=== PATIENT | female | born 1955 | race Caucasian/White ===

== ENCOUNTER 2021-01-23 10:19 | Inpatient (IN) | payer OTHER, SELFPAY ==
[2021-01-23] VITALS (12 sets, daily range): BP systolic 91–135; BP diastolic 63–93; PULSE 62–77; RESP 14–18; TEMP 36.4–36.8; O2SAT 98–100; BMI 23.5
--- NOTE | ~2021-01-23 | XR_ITS ---
EXAMINATION: XR chest 1V portable DATE: 01/23/2021 11:04 INDICATION: Fall TECHNIQUE: frontal view of the chest was obtained. COMPARISON: Chest radiograph dated 03/11/2019 FINDINGS: The lungs remain clear with no focal airspace opacities, pulmonary edema, pleural effusion or pneumot horax. The cardiomediastinal silhouette is normal. Mild thoracic levocurvature with mild spondylosis. IMPRESSION: 1. No acute cardiopulmonary disease. Reviewed, dictated and finalized at location A.
--- NOTE | ~2021-01-23 | XR_ITS ---
EXAMINATION: XR surgery orthopedic DATE: 01/25/2021 13:19 INDICATION: ORIF right wrist fracture TECHNIQUE: Dorsal palmar and lateral fluoroscopic images of the right wrist were obtained during proc edure performed by Dr. Mcqueen. Radiologist was not present for the imaging or procedure. The amount of fluoroscopy time used during this procedure was 0.3 minutes. COMPARISON: 01/23/2021 FINDINGS: Interval open reduction and internal fixation of the previous noted comminuted intra-articular fractu re distal right radius with a volar T plate and screws. Alignment post fixation appears near-anatomic . No evident ulnar styloid process which could be either developmental or sequela of old trauma. IMPRESSION: 1. Near-anatomic alignment post open reduction internal fixation of a comminuted intra-articular frac ture of the distal right radius. See procedure note for further detail. Reviewed, dictated and finalized at location A. IMPRESSION: 1. Near-anatomic alignment post open reduction internal fixation of a comminute d intra-articular fracture of the distal right radius. See procedure note for f urther detail.
--- NOTE | ~2021-01-23 | XR_ITS ---
EXAMINATION: XR ankle LT min 3V DATE: 01/23/2021 11:03 INDICATION: Fifth metatarsal fracture post fall one day prior TECHNIQUE: Anteroposterior, oblique, mortise, and lateral views of the left ankle were obtained. COMPARISON: None. FINDINGS: Fiberglas splinting material along the posterior aspect of the left calf and plantar to the left foot . Nondisplaced likely avulsion fracture at the base of the left fifth metatarsal, likely intra-articu lar given its orientation in proximity to the articular surface which is not well profiled on the fro ntal projection. Alignment remains essentially anatomic. No other fractures identified. Joint spaces appear relatively preserved. Moderate-sized plantar calcaneal spur. IMPRESSION: 1. Nondisplaced fracture at the base of the left fifth metatarsal. Reviewed, dictated and finalized at location A.
--- NOTE | ~2021-01-23 | XR_ITS ---
EXAMINATION: XR wrist RT min 3V DATE: 01/23/2021 11:04 INDICATION: Right wrist deformity post fall TECHNIQUE: Posteroanterior, ulnar deviation, oblique, and lateral views of the right wrist were obtai tyshawn. COMPARISON: 03/16/2013 FINDINGS: Recurrent acute comminuted intra-articular fracture of the distal right radius. There is 6 mm dorsal displacement along with dorsal and radial sided impaction/angulation resulting in neutral inclination and mild dorsal angulation of the distal articular surface. No significant fracture gap or incongrui ty cruciate at the articular surface on the provided images. Chronic nonunited ulnar styloid avulsion fracture with interval resorption of the ulnar styloid process fragment. Mild polyarticular osteoart hritis at the radial aspect of the carpus and involving multiple metacarpophalangeal and interphalang eal joints. Diffuse osteopenia. IMPRESSION: 1. Mild dorsal displacement as well as dorsal and radial impaction angulation of a comminuted intra-a rticular fracture of the distal right radius. Reviewed, dictated and finalized at location A. IMPRESSION: 1. Mild dorsal displacement as well as dorsal and radial impaction angulation o f a comminuted intra-articular fracture of the distal right radius.
--- NOTE | ~2021-01-23 | XR_ITS ---
EXAMINATION: XR wrist RT 2V DATE: 01/23/2021 13:00 INDICATION: Post reduction distal right radial fracture. TECHNIQUE: Posteroanterior and lateral views of the right wrist were obtained. COMPARISON: 01/23/2021 at 11:00 AM FINDINGS: Improvement in alignment of a comminuted intra-articular fracture of the distal right radius. There i s approximately 3-4 mm persistent dorsal displacement but reduction in the degree of dorsal and radia l angulation now with 3 mm dorsal tilt and 13 degrees radial inclination of the distal articular surf tashi. No significant fracture gap or incongruity at the articular surface. Mild osteoarthritis at the radial aspect of the carpus and at several metacarpophalangeal and interphalangeal joints. Diffuse os teopenia. Splinting material along the volar aspect of the wrist, hand and forearm. IMPRESSION: 1. Improved alignment post reduction and splinting of a comminuted intra-articular fracture of the di stal right radius. Reviewed, dictated and finalized at location A. IMPRESSION: 1. Improved alignment post reduction and splinting of a comminuted intra-articu lar fracture of the distal right radius.
--- NOTE | 2021-01-23 10:36 | ECG_ITS ---
Measurements Intervals [place] Rate: 60 P: 74 KS: 131 QRS: 52 QRSD: 93 T: 49 QT: 380 QTc: 380 Interpretive Statements SINUS RHYTHM WITH SINUS ARRHYTHMIA RSR' IN V1 OR V2, CONSIDER RIGHT VENTRICULAR HYPERTROPHY OR RIGHT VCD BASELINE ARTIFACT- I, III, AVL BORDERLINE ECG Electronically Signed On 01-23-2021 16:08:44 CDT by Armin Haskins D.O.
[2021-01-23] MEDS: ONDANSETRON INJ 4 MG/2 ML VIAL IV PUSH (11:04)
[2021-01-23] MEDS: FAMOTIDINE 20 MG/2 ML VIAL IV PUSH (11:05)
[2021-01-23] MEDS: MORPHINE SULFATE (*CRX) 4 MG/ML INJ IV PUSH ×2 (11:05→12:15)
[2021-01-23] MEDS: SODIUM CHLORIDE 0.9% IV 1,000 ML 999 ML IV CONT (11:06)
[2021-01-23 11:08] LABS: Basophils Absolute Auto 0.1 K/mm3 (0.0-0.1); Basophils Percent Auto 1.1 % (0.2-1.2); Eosinophils Absolute Auto 0.1 K/mm3 (0-0.3); Eosinophils Percent Auto 1.9 % (0-4.4); Hematocrit 40.5 % (37.0-47.0); Hemoglobin 13.3 g/dL (12.0-15.0); Immature Granulocyte Absolute 0.01 K/mm3 (0.00-0.031); Immature Granulocyte Percent A 0.2 % (0-0.5); Lymphocytes Absolute Auto 1.11 K/mm3 (0.9-3.2); Mean Corpuscular HGB Conc 32.8 g/dl (32-36); Mean Corpuscular Hemoglobin 31.8 pg (26-34); Mean Corpuscular Volume 96.9 fl (80-100); Mean Platelet Volume 9.7 fl (7.4-10.4); Monocytes Absolute Auto 0.5 K/mm3 (0.1-0.6); Neutrophils Absolute Auto 2.9 K/mm3 (1.3-6.7); Neutrophils Percent Auto 62.8 % (45.5-73.1); Platelet Count Result 183 k/mm3 (150-375); Red Blood Count 4.18 M/mm3 (4.2-5.4); Red Cell Distribution Width 12.2 % (11.5-14.5); White Blood Count 4.6 K/mm3 (4.5-10.0)
[2021-01-23 11:18] LABS: Prothrombin Time 13.3 Seconds (11.1-14.7)
[2021-01-23 11:19] LABS: Partial Thromboplastin Time 30.2 SECONDS (22.3-36.8)
[2021-01-23 11:22] LABS: Alanine Aminotransferase 15 U/L (4-35); Alkaline Phosphatase 93 U/L (38-126); Anion Gap 5 mmol/L (8-16); Aspartate Amino Transferase 29 U/L (14-36); Bilirubin,Total 0.2 mg/dL (0.2-1.3); Blood Urea Nitrogen 12 mg/dL (7-17); Calcium 8.5 mg/dL (8.4-10.2); Carbon Dioxide 25 mmol/L (22-30); Chloride 106 mmol/L (98-107); Estimated CRCL calculation 52 ml/min; Estimated Glomerular Filt Rate > 60; Glucose 94 mg/dL (65-105); Potassium 4.3 mmol/L (3.4-5.0); Sodium 136 mmol/L (137-145)
[2021-01-23 11:37] LABS: Add Urine Microscopic? NO; Appearance Urine Clear (Clear); Bilirubin Urine Negative (Negative); Blood Urine Negative (Negative); Color Urine Straw (Yellow); Glucose Urine UA Negative (Negative); Ketones Urine Negative (Negative); Leukocyte Esterase Ur Negative LEU/UL (Negative); Nitrate Urine Negative (Negative); Protein Urine Negative (Negative); Specific Grav Ur 1.008 (1.001-1.035); Urobilinogen Urine Negative mg/dL (<2.0)
--- NOTE | 2021-01-23 12:28 | ED.GENADULT ---
HPI - General Adult General Chief complaint: Fall Stated complaint: FALL Source: patient and EMS Mode of arrival: EMS Limitations: no limitations History of Present Illness HPI narrative: Patient is a 65-year-old female who presents with right wrist injury status post fall patient had a syncopal episode on Monday was seen at [facility] found to have fracture of the base of the fifth metatarsal sent home in OCL splint patient lives by herself and notes this morning she fell while trying to ambulate, patient notes on Monday she did hit her head had CT imaging which was unremarkable. Patient does present with bruising of the face notes she has headache and has felt lightheaded since going home but her headache has not worsened. Patient denies vomiting diarrhea or other complaints. Patient presents with obvious deformity of the right wrist joint Related Data Home Medications Medication Instructions Recorded Confirmed primidone 01/23/21 Allergies Allergy/AdvReac Type Severity Reaction Status Date / Time levofloxacin Allergy Intermediate Rash Verified 01/23/21 10:21 fentanyl AdvReac Severe hallucinati Verified 01/23/21 10:21 ons Review of Systems Review of Systems: All systems reviewed & are unremarkable except as noted in HPI and below PMFSH Past Medical History Medical History (Updated 01/23/21 @ 13:35 by Israel Callejas PA-C) Tobacco abuse Surgical History Surgical History (Updated 01/23/21 @ 12:31 by Israel Callejas PA-C) History of orthopedic surgery Social History Social History Smoking status: Former smoker Smoking end date: 11/06/17 Alcohol intake: never Exam Narrative: Exam Narrative: GENERAL: Well-appearing, well-nourished, and in no acute distress. HEAD: Normocephalic, bruising of the face EYES: PERRLA and EOMI. ENT: Nares clear, no rhinorrhea or epistaxis. Mucous membranes moist. Oropharynx without tonsillar hypertrophy exudate or other lesions. NECK: Supple. No adenopathy or masses. CHEST: Clear to auscultation. No respiratory distress. No wheezes rales or rhonchi HEART: Regular rate and rhythm. No murmur heard. Normal peripheral pulses. ABDOMEN: Soft, nontender, nondistended EXTREMITIES: Normal range of motion. Mild edema of the left foot. No cervical thoracic or lumbar tenderness. Deformity of the right wrist joint remainder of extremities with normal range of motion aside from the left ankle foot where she also has a fracture pelvis palpated nontender. SKIN: Warm, dry, no rash. NEURO: No focal deficits. Alert and oriented x3. Neurovascularly intact. Cranial nerves II through XII grossly intact PSYCH: Normal mood and affect. Course Course Emergency Course: Patient evaluated had reduction and splinting of wrist fracture will be brought into the hospital by the hospitalist service will also be evaluated by orthopedic surgery. Patient in the room resting comfortably hemodynamically stable ABCs and vital signs intact and stable patient agreeing with the plan Consultations Consultation #1: Discussed case with hospitalist and orthopedic surgeon who will admit and consult on the patient Date: 01/23/21 Time: 13:31 Vital Signs Vital signs: Vital Signs Temperature 98.1 F 01/23/21 10:14 Pulse Rate 74 01/23/21 10:14 Respiratory Rate 18 01/23/21 10:14 Blood Pressure 135/79 01/23/21 10:14 Pulse Oximetry 100 01/23/21 10:14 Temperature 98.1 F 01/23/21 11:35 Pulse Rate 71 01/23/21 10:31 Respiratory Rate 14 01/23/21 10:31 Blood Pressure 126/93 H 01/23/21 10:31 Pulse Oximetry 100 01/23/21 10:31 Procedures Orthopedic Fracture Reduction Fracture #1: Fracture Reduction date: 01/23/21 Fracture Reduction time: 13:34 Time Out Performed: Yes Side: right Fracture Reduction Location: radius Analgesia: hematoma block Technique: direct michela
[2021-01-23] MEDS: MORPHINE SULFATE (*CRX) 4 MG/ML INJ (12:49)
--- NOTE | 2021-01-23 14:00 | PM.IMHP ---
H&P: HPI History of Present Illness Date/Time: 01/23/21 14:00 Chief Complaint: Right wrist injury after fall. Narrative: This is a 65-year-old female with history of essential tremor and anxiety who presented to the emergency department earlier today via EMS from home for evaluation of a right wrist injury after a fall. She was seen in the emergency department at [facility] in [place] yesterday after having stumbling after getting up off of the toilet. Apparently she hit the left side of her face on the bathtub so hard that it ?through me back onto my butt? however she apparently twisted her left foot and was not able to bear weight thereafter. Brain CT was unremarkable but she was found to have a left 5th metatarsal fracture treated with an OCL splint. She was discharged home where she unfortunately sustained another fall today due to difficulties ambulating with the splint. Apparently she fell forward while getting up from her recliner, and fell onto her outstretched right hand, with immediate pain and deformity. Imaging in the emergency department today shows a recurrent comminuted distal right radius fracture and she is being admitted in this setting. At the time of my evaluation she rates her pain 7/10 ?and it far out shadows the pain in the left foot.? She denies head trauma in the fall today. She is not having confusion, headache, diplopia, focal weakness, or paresthesias. No other injuries in today's fall. Review of Systems Review of Systems: Narrative: Twelve systems were reviewed with pertinent positives and negatives as per HPI. No recent cold or flu symptoms. She denies chest pain, pleuritic pain, shortness of breath. No exposure to those positive for COVID-19. Except as documented, all other systems were reviewed and are negative. [facility] Past Medical History Medical History (Updated 01/23/21 @ 14:17 by Miranda Gomez PA-C) Anxiety Bacteremia due to Pseudomonas (~04/2019) Related to urinary tract infection. Essential tremor Perforated sigmoid colon (~09/2018) Complicated by extensive fecal peritonitis and Gram-negative shock, status post sigmoid colon resection with Sreekanth procedure and descending colostomy with subsequent closure and reanastomosis in June 2019. Tobacco abuse Surgical History Surgical History (Updated 01/23/21 @ 14:14 by Miranda Gmoez PA-C) History of incisional hernia repair (~03/2019) Large incisional hernia repair at the time of closure of Sreekanth colostomy with colorectal anastomosis and extensive adhesiolysis. Complicated by right ureteral injury with subsequent stent. History of orthopedic surgery History of surgery on right wrist (~01/2013) ORIF right distal radius fracture. Status post Sreekanth procedure (~09/2018) Secondary to perforated sigmoid colon with descending colostomy as well as left salpingo-oophorectomy. Family History Family History Mother Heart disease Chronic kidney disease Sibling Parkinsons disease Liver disease due to alcohol Social History Social History (Updated 01/23/21 @ 21:18 by Miranda Gomez PA-C) Social History: Surrogate decision maker: dioni Poe. Code status: Full code. Smoking packs per day: 1 Smoking cigarettes per day: 20.0 Years smoked: 45 Smoking pack-years: 45.00 Smoking status: Former smoker Tobacco type: pipe Smoking end date: 09/06/18 Additional smoking assessment comments: Patient voiced that she smokes marijuana daily. Alcohol intake: former Substance use type: marijuana Other substance usage details: used marijuana lastnight 01-23-21 Additional living arrangements comments: The patient is and recently moved into a senior apartment Additional occupation/education comments: Unemployed. Gender identity (if verbalized by the patient): Female Spiritual care concerns: No Meds Home Medications
--- NOTE | 2021-01-23 15:05 | PC.NURSE ---
This patient, Bharati Triana, was admitted to Medical Room 341-01. Patient/family oriented to hospital policies and general routines including ID bracelet, bed and alarms, visiting hours, pain management, procedures, bathroom and other care routines, personal items, smoking policy, room service/diet, and visiting hours. Information on how to activate the Rapid Response Team has been discussed. Patient/Family are encouraged to report perceived risks to care and to ask questions if they do not understand what they are told or what they should do.
[2021-01-23] MEDS: traMADol HCL (*CRX) 25 MG TABLET PO (17:12)
[2021-01-23] MEDS: MORPHINE SULFATE (*CRX) 2 MG/ML INJ IV PUSH (18:33)
[2021-01-23] MEDS: MELATONIN 5 MG TABLET PO (22:10)
[2021-01-23] MEDS: PRIMIDONE 250 MG TABLET PO (22:20)
[2021-01-24] VITALS (15 sets, daily range): BP systolic 67–160; BP diastolic 42–90; PULSE 61–95; RESP 16–18; TEMP 36.1–36.3; O2SAT 95–98
[2021-01-24] MEDS: traMADol HCL (*CRX) 25 MG TABLET PO ×3 (01:17→21:34)
[2021-01-24] MEDS: MORPHINE SULFATE (*CRX) 2 MG/ML INJ IV PUSH ×5 (03:05→23:36)
--- NOTE | 2021-01-24 08:09 | PM.CNOR ---
Assessment and Plan Assessment and plan (1) Closed fracture of distal end of right radius: Qualifiers: Encounter type: initial encounter Fracture morphology: other intra-articular Qualified Code(s): S52.571A - Other intraarticular fracture of lower end of right radius, initial encounter for closed fracture Code(s): S52.501A - Unspecified fracture of the lower end of right radius, initial encounter for closed fracture Status: Acute (2) Closed fracture of fifth metatarsal bone: Qualifiers: Encounter type: initial encounter Fracture alignment: nondisplaced Laterality: left Qualified Code(s): S92.355A - Nondisplaced fracture of fifth metatarsal bone, left foot, initial encounter for closed fracture Code(s): S92.353A - Displaced fracture of fifth metatarsal bone, unspecified foot, initial encounter for closed fracture Status: Acute Assessment and Plan: 65-year-old female with comminuted right distal radius fracture. This is a very unstable configuration. I did discuss treatment options with her. Believe her best option is going to be ORIF of the distal radius. Tentatively this is planned for tomorrow. Regarding the left foot, this will be treated nonsurgically in a postop shoe. She had recently started smoking again after the of one of her sons. I did talked about the role of smoking and wound healing along with fracture healing issues. Risks and potential complications were discussed in detail and questions answered. Thank you for the consultation. History of Present Illness HPI Consult date: 01/24/21 Consult reason: fracture Chief complaint: right wrist fracture/metatarsal fracture Narrative: This document created with [id number] technology and is subject to vice president tax irregularities. 65-year-old female who fell at her home yesterday suffering a comminuted right distal radius fracture. Couple days before she had injured her left foot suffering a nondisplaced fifth metatarsal base fracture. She had been in a posterior splint. Instability and this is what caused her to fall and injure her right wrist. She is not really having much discomfort in the left foot at this point. History of pinning right distal radius fracture some years ago for fracture. She did have residual stiffness in her right hand and wrist following the pinning by her report. History of a couple of right distal radius fractures as a child which apparently healed up uneventfully. History of benign essential tremor. This is well controlled with medications by her report. Review of Systems Constitutional: Constitutional: Reports no additional constitutional complaints Eyes: Eyes: Reports no additional eye complaints ENT: Reports system reviewed and no additional complaints, except as documented Cardiovascular: Cardiovascular: Denies chest pain at rest and Denies dyspnea Respiratory: Respiratory: Reports no additional respiratory complaints Gastrointestinal: Gastrointestinal: Reports no additional gastrointestinal complaints Musculoskeletal: Musculoskeletal: Reports as per HPI Integumentary/Breasts: Skin/Breast: Reports system reviewed and no additional complaints, except as docu Neurologic: Reports as per HPI Endocrine: Endocrine: Denies excessive sweating and Denies fatigue Hematologic/Lymphatic: Hematologic/Lymphatic: Denies easy bleeding and Denies easy bruising PMFSH Past Medical History Medical History Anxiety Bacteremia due to Pseudomonas (~04/2019) Related to urinary tract infection. Essential tremor Perforated sigmoid colon (~09/2018) Complicated by extensive fecal peritonitis and Gram-negative shock, status post sigmoid colon resection with Sreekanth procedure and descending colostomy with subsequent closure and reanastomosis in June 2019. Tobacco abuse Surgical History Surgical History (Reviewed 01/24/21 @ 08:12
--- NOTE | 2021-01-24 08:25 | PCOTNOTE ---
Attempted OT eval 8:25; pt down for surgery.
--- NOTE | 2021-01-24 08:25 | PCPTNOTE ---
Pt is in surgery this morning...will be seen later today as appropriate
[2021-01-24] MEDS: PRIMIDONE 250 MG TABLET PO ×3 (09:28→16:54)
--- NOTE | 2021-01-24 10:00 | PM.IMPN ---
Progress Note: A&P Assessment and Plan (1) Orthostatic hypotension: Code(s): I95.1 - Orthostatic hypotension <Tonie Szymanski PA-C - Last Filed: 01/24/21 11:33> Status: Acute <MIGDALIA Biggs Last Filed: 01/24/21 11:33> Assessment and Plan: Positive orthostatics. Could be from autonomic dysfunction versus some dehydration versus medication primidone which she is on for central tremor Will give 500 cc of IV fluid for some dehydration, Sarath hose to the right leg since left leg has a brace. Continue monitoring, PT OT after her surgery <Tonie Szymanski PA-C - Last Filed: 01/24/21 11:33> (2) Fall from ground level: Code(s): W18.30XA - Fall on same level, unspecified, initial encounter <Tonie Szymanski PA-C - Last Filed: 01/24/21 11:33> Status: Acute <Tonie Szymanski PA-C - Last Filed: 01/24/21 11:33> Assessment and Plan: The patient had sustained 2 falls recently and stated she believe she rolled her ankle on 1 of the occasions and the 2nd occasion she had trouble getting around due to her broken left foot and ended up falling forward and breaking her right wrist. She does also report when she stands up she becomes lightheaded. Most the time she needs to stay standing for a few seconds before she feels well enough to start walking. She does feel lightheaded with standing at this time while doing her orthostatic blood pressures. Her orthostatics this morning were positive with a significant drop from sitting 156/76 to standing at 67/42. The patient appears well hydrated at this time but will give 500 cc of IV fluids Will place Sarath hose to her right lower extremity since left lower extremity is fractured She could have autonomic dysfunction as well since she has an essential tremor Telemetry at this time shows normal sinus rhythm with a heart rate of 63 beats per minute, no acute abnormality noted. Continue monitoring. Risk for falling so she must ambulate with assistance. <Tonie Szymanski PA-C - Last Filed: 01/24/21 11:33> (3) Closed fracture of distal end of right radius: Qualifiers: Encounter type: initial encounter Fracture morphology: other intra-articular Qualified Code(s): S52.571A - Other intraarticular fracture of lower end of right radius, initial encounter for closed fracture <Tonie Szymanski PA-C - Last Filed: 01/24/21 11:33> Code(s): S52.501A - Unspecified fracture of the lower end of right radius, initial encounter for closed fracture <Tonie Szymanski PA-C - Last Filed: 01/24/21 11:33> Status: Acute <Tonie Szymanski PA-C - Last Filed: 01/24/21 11:33> Assessment and Plan: Plan for ORIF of the distal right radius tomorrow with Dr. Mcqueen. Ortho does input and they will be managing her pain control postop, discharge planning, and anticoagulation for DVT prophylaxis <Tonie Szymanski PA-C - Last Filed: 01/24/21 11:33> (4) Closed fracture of fifth metatarsal bone: Qualifiers: Encounter type: initial encounter Fracture alignment: nondisplaced Laterality: left Qualified Code(s): S92.355A - Nondisplaced fracture of fifth metatarsal bone, left foot, initial encounter for closed fracture <Tonie Szymanski PA-C - Last Filed: 01/24/21 11:33> Code(s): S92.353A - Displaced fracture of fifth metatarsal bone, unspecified foot, initial encounter for closed fracture <Tonie Szymanski PA-C - Last Filed: 01/24/21 11:33> Status: Acute <Tonie Szymanski PA-C - Last Filed: 01/24/21 11:33> Assessment and Plan: Ortho will continue monitoring her acute fracture with nonsurgical treatment and to keep her in a postop shoe. Follow-up with ortho as an outpatient <Tonie Szymanski PA-C - Last Filed: 01/24/
[2021-01-24] MEDS: SODIUM CHLORIDE 0.9% IV 500 ML 75 ML IV CONT (11:10)
--- NOTE | 2021-01-24 12:43 | PCOTNOTE ---
Previous notes stated pt's surgery was to be completed this morning, but nursing reported surgery is to be completed tomorrow. Spoke to nurse- will await new orders for tomorrow from orthopedic surgeon prior to completing OT eval.
--- NOTE | 2021-01-24 12:45 | PCPTNOTE ---
PT/OT evals ordered. Pt is scheduled for Orthopedic surgery in the morning. Will await new PT/OT orders, tomorrow, from Orthopedic surgeon.
[2021-01-24] MEDS: MELATONIN 5 MG TABLET PO (21:31)
[2021-01-24] MEDS: ONDANSETRON INJ 4 MG/2 ML VIAL IV PUSH (23:19)
[2021-01-25] VITALS (16 sets, daily range): BP systolic 109–152; BP diastolic 54–75; PULSE 66–96; RESP 16–20; TEMP 35.8–36.7; O2SAT 96–100
[2021-01-25] MEDS: MORPHINE SULFATE (*CRX) 2 MG/ML INJ IV PUSH (03:17)
[2021-01-25 05:45] LABS: Hematocrit 37.4 % (37.0-47.0); Hemoglobin 12.6 g/dL (12.0-15.0); Mean Corpuscular HGB Conc 33.7 g/dl (32-36); Mean Corpuscular Hemoglobin 31.5 pg (26-34); Mean Corpuscular Volume 93.5 fl (80-100); Mean Platelet Volume 9.9 fl (7.4-10.4); Platelet Count Result 174 k/mm3 (150-375); Red Cell Distribution Width 11.9 % (11.5-14.5)
[2021-01-25 06:03] LABS: Anion Gap 7 mmol/L (8-16); Blood Urea Nitrogen 7 mg/dL (7-17); Calcium 8.8 mg/dL (8.4-10.2); Carbon Dioxide 28 mmol/L (22-30); Chloride 103 mmol/L (98-107); Estimated CRCL calculation 59 ml/min; Estimated Glomerular Filt Rate > 60; Glucose 100 mg/dL (65-105); Sodium 138 mmol/L (137-145)
--- NOTE | 2021-01-25 07:37 | PCWOUND ---
[facility] NOTE received referral for pressure. no documentation of pressure present. spoke to RN on Monday, received report referral was in error. patient does not have pressure injury.
[2021-01-25] MEDS: PRIMIDONE 250 MG TABLET PO ×3 (08:00→17:29)
[2021-01-25] MEDS: traMADol HCL (*CRX) 25 MG TABLET PO (08:09)
--- NOTE | 2021-01-25 10:11 | PC.NURSE ---
Pt to OR per bed. Report to NINI Huerta.
--- NOTE | 2021-01-25 10:12 | WPDANESEPPF ---
Anes - Initial Pre Proc Eval Procedure: Operation Date: 01/25/21 11:30 Proposed Procedures p Open Reduction Internal Fixation Right Distal Radius - Jose Manuel Mcqueen MD Date/Time: 01/25/21 10:12 Surgeon: Tonie Szymanski PA-C Pre Op Diagnosis: right wrist fracture/metatarsal fracture Patient Data Age: 65 Gender: F Height: 1.6 m Weight: 60.2 kg Last Vital Signs Temp 35.8 C L 01/25/21 05:30 Pulse 80 01/25/21 08:00 Resp 16 01/25/21 05:30 BP 142/75 H 01/25/21 05:30 Pulse Ox 98 01/25/21 05:30 Allergies Allergy/AdvReac Type Severity Reaction Status Date / Time levofloxacin Allergy Intermediate Rash Verified 01/23/21 10:21 fentanyl AdvReac Severe hallucinati Verified 01/23/21 10:21 ons Home Medications Medication Instructions Recorded Confirmed Type primidone 250 mg PO TID 01/23/21 01/23/21 History Laboratory Tests 01/25/21 01/25/21 01/25/21 05:21 05:21 05:21 WBC 5.0 K/mm3 K/mm3 (4.5-10.0) RBC 4.00 M/mm3 L M/mm3 (4.2-5.4) Hgb 12.6 g/dL g/dL (12.0-15.0) Hct 37.4 % % (37.0-47.0) MCV 93.5 fl fl (80-100) MCH 31.5 pg pg (26-34) MCHC 33.7 g/dl g/dl (32-36) RDW 11.9 % % (11.5-14.5) Plt Count 174 k/mm3 k/mm3 (150-375) MPV 9.9 fl fl (7.4-10.4) Sodium 138 mmol/L mmol/L (137-145) Potassium 4.0 mmol/L mmol/L (3.4-5.0) Chloride 103 mmol/L mmol/L (98-107) Carbon Dioxide 28 mmol/L mmol/L (22-30) Anion Gap 7 mmol/L L mmol/L (8-16) BUN 7 mg/dL D mg/dL (7-17) Creatinine 0.70 mg/dL mg/dL (0.7-1.0) Estim Creat Clear Calc 59 ml/min ml/min Estimated GFR > 60 (59 - ) Glucose 100 mg/dL mg/dL (65-105) Calcium 8.8 mg/dL mg/dL (8.4-10.2) TSH (Reflex) 2.750 uIU/mL uIU/mL (0.465-4.68) Random Cortisol 01/25/21 05:21 WBC RBC Hgb Hct MCV MCH MCHC RDW Plt Count MPV Sodium Potassium Chloride Carbon Dioxide Anion Gap BUN Creatinine Estim Creat Clear Calc Estimated GFR Glucose Calcium TSH (Reflex) Random Cortisol Pending Patient hx anesthesia problems: none Family hx anesthesia problems: none [facility] [place] Past Medical History Medical History (Updated 01/24/21 @ 10:00 by Tonie Szymanski PA-C) Anxiety Bacteremia due to Pseudomonas (~04/2019) Related to urinary tract infection. Closed fracture of distal end of right radius Closed fracture of fifth metatarsal bone Essential tremor Perforated sigmoid colon (~09/2018) Complicated by extensive fecal peritonitis and Gram-negative shock, status post sigmoid colon resection with Sreekanth procedure and descending colostomy with subsequent closure and reanastomosis in June 2019. Tobacco abuse Surgical History Surgical History History of incisional hernia repair (~03/2019) Large incisional hernia repair at the time of closure of Sreekanth colostomy with colorectal anastomosis and extensive adhesiolysis. Complicated by right ureteral injury with subsequent stent. History of orthopedic surgery History of surgery on right wrist (~01/2013) ORIF right distal radius fracture. Status post Sreekanth procedure (~09/2018) Secondary to perforated sigmoid colon with descending colostomy as well as left salpingo-oophorectomy. Family History Family History Mother Heart disease Chronic kidney disease Sibling Parkinsons disease Liver disease due to alcohol Social History Social History Social History: Surrogate decision maker: Viridiana Mcnamarake, niece. Code status: Full code. Gillian
--- NOTE | 2021-01-25 10:13 | WPDANESPNB ---
Anes - Peripheral Nerve Block Date/Time: 01/25/21 10:13 I have discussed with the patient/family/POA the placement of a peripheral nerve block for post-operative pain management, including associated risks, benefits, complications, and side effects. Alternative methods of post-operative analgesia were detailed. Questions were solicited and answers provided to the satisfaction of the patient/family/POA. Time-Out: A pre-procedural Time-Out was completed immediately before starting the procedure and confirmed: Patient Identification, Site, Procedure, Patient Position and the Availability of Requisite Equipment. Clinical Indications: Acute post-operative pain management requested by the operative surgeon. Nerve Block Insertion Note Anes-nerve block: supraclavicular right Patient position: supine Skin prep: chlorhexidine Needle: 22 gauge, stimulating, insulated echogenic needle. Needle length: 50 mm Technique: ultrasound Injectate: bupivacaine 0.5% with epi 5 mcg/ml (30cc- no epi) Observations: tolerated well Complications: none Procedure start time:: 1126 Procedure end time:: 1130
[2021-01-25] MEDS: LACTATED RINGERS 1,000 ML 30 ML IV CONT ×2 (10:46→13:35)
--- NOTE | 2021-01-25 11:43 | WPDHPUPDATE1 ---
History and Physical Update Update Date/Time: 01/25/21 11:43 History and Physical has been reviewed, including an updated exam of the patient. There are NO changes in the patient's condition. Risks, benefits, and alternatives have been discussed and questions answered. Patient agrees to proceed with procedure.
[2021-01-25] MEDS: ceFAZolin 2 GM/D5W 50 ML 2 GM/50 ML BAG IVPB (11:50)
--- NOTE | 2021-01-25 13:23 | PCOTNOTE ---
Attempted OT evaluation, patient is currently off the unit in OR for ortho surgery, will follow and attempt at later time.
--- NOTE | 2021-01-25 13:52 | P.OP_ITS ---
Procedure Note - Detailed Date of procedure: 01/25/21 Pre-op diagnosis: right wrist fracture/metatarsal fracture Comminuted intra-articular right distal radius fracture Post-op diagnosis: same Procedure performed: ORIF right distal radius fracture Description of procedure: The patient was identified and the proper side identified. In the preop holding area, the anesthesia team performed a right upper extremity block. She was taken back to the operating room, transferred to the or table positioning supine taking care to pad her torso and extremities. After general anesthetic induction and intubation, a nonsterile tourniquet was placed high on the right arm which was prepped and draped in the usual sterile fashion. The extremity was exsanguinated and tourniquet inflated to 250 mmHg remaining up for approximately 58 minutes. A volar longitudinal incision was made along the FCR tendon distally. The subcutaneous tissue was sharply dissected protecting neurovascular structures. The FCR tendon was released from its sheath and retracted ulnarly. This allowed for the deep fascia of the forearm to be divided longitudinally in line with the incision. Care was taken to protect the volar compartment structures as well as the radial nerve and radial vascular structures. The pronator quadratus was elevated off of the distal radius allowing for inspection of the fracture site. The fracture fragments were disimpacted and able to be realigned virtually anatomically with fluoroscopic assistance. They were secured in this position with a wide short plate for the right distal radius from the DVR set. The plate was applied with fluoroscopic visualization to avoid penetration of the joint and to ensure optimal hardware placement. Once the plate was secure the overall construct was assessed fluoroscopically on the AP and lateral views. The virtually anatomic reduction was held very nicely. The construct was stable. The wound was irrigated with a copious amount of sterile antibiotic solution. Skin edges were reapproximated with two of strata fix and tissue adhesive. Sterile dressing was applied. Tourniquet was released. A well-padded short-arm volar wrist splint was fashioned. The procedure was well tolerated. There were no known intraoperative complications. Estimated blood loss was negligible. Anesthesia: GLMA Surgeon: Jose Manuel Mcqueen MD [employer] Architect: Tatiana Rodriguez Tourniquet time (min): 58 Drains: No Packing: No Pathology: none sent Complications: No immediate complications Condition: stable Disposition: PACU
[2021-01-25] MEDS: ONDANSETRON INJ 4 MG/2 ML VIAL IV PUSH (13:57)
--- NOTE | 2021-01-25 14:24 | PC.NURSE ---
Patient returned from OR. Report received from NINI Aguilar.
[2021-01-25] MEDS: COSYNTROPIN 0.25 MG/ML VIAL IV PUSH (14:56)
--- NOTE | 2021-01-25 15:39 | PM.IMPN ---
Progress Note: A&P Assessment and Plan (1) Orthostatic hypotension: Code(s): I95.1 - Orthostatic hypotension Status: Acute Assessment and Plan: Positive orthostatics. Could be from autonomic dysfunction versus some dehydration versus medication primidone which she is on for central tremor Will give 500 cc of IV fluid for some dehydration, Sarath hose to the right leg since left leg has a brace. Cortisol was ordered and it was low. Now further testing will be completed with an ACTH and Stim Test to assess the function of the adrenal glands which could be contributing to her orthostatic hypotension. Continue monitoring, PT OT after her surgery (2) Fall from ground level: Code(s): W18.30XA - Fall on same level, unspecified, initial encounter Status: Acute Assessment and Plan: The patient had sustained 2 falls recently and stated she believe she rolled her ankle on 1 of the occasions and the 2nd occasion she had trouble getting around due to her broken left foot and ended up falling forward and breaking her right wrist. She does also report when she stands up she becomes lightheaded. Most the time she needs to stay standing for a few seconds before she feels well enough to start walking. She does feel lightheaded with standing at this time while doing her orthostatic blood pressures. Her orthostatics this morning were positive with a significant drop from sitting 156/76 to standing at 67/42. The patient appears well hydrated at this time Will place Sarath hose to her right lower extremity since left lower extremity is fractured She could have autonomic dysfunction as well since she has an essential tremor- Monitoring with Cortisol labs/work up Telemetry at this time shows normal sinus rhythm with a heart rate of 67 beats per minute, no acute abnormality noted. Continue monitoring. Risk for falling so she must ambulate with assistance. (3) Closed fracture of distal end of right radius: Qualifiers: Encounter type: initial encounter Fracture morphology: other intra-articular Qualified Code(s): S52.571A - Other intraarticular fracture of lower end of right radius, initial encounter for closed fracture Code(s): S52.501A - Unspecified fracture of the lower end of right radius, initial encounter for closed fracture Status: Acute Assessment and Plan: patient underwent ORIF of the distal right radius with Dr. Mcqueen today, PostOP Day #0 Ortho does input and they will be managing her pain control postop, discharge planning, and anticoagulation for DVT prophylaxis (4) Closed fracture of fifth metatarsal bone: Qualifiers: Encounter type: initial encounter Fracture alignment: nondisplaced Laterality: left Qualified Code(s): S92.355A - Nondisplaced fracture of fifth metatarsal bone, left foot, initial encounter for closed fracture Code(s): S92.353A - Displaced fracture of fifth metatarsal bone, unspecified foot, initial encounter for closed fracture Status: Acute Assessment and Plan: Ortho will continue monitoring her acute fracture with nonsurgical treatment and to keep her in a postop shoe. Follow-up with ortho as an outpatient (5) Essential tremor: Code(s): G25.0 - Essential tremor Status: Acute Assessment and Plan: She is on primidone for her central tremor, this could cause some orthostatic hypotension. (6) Anxiety: Code(s): F41.9 - Anxiety disorder, unspecified Status: Acute Assessment and Plan: She is not on anything for this. Will continue monitoring and may need to start medication. She recently lost her son in October and she is still in the grieving process. Very tearful during my evaluation with talking about him.
[2021-01-25 15:46] LABS: Cortisol Baseline 3.89 ug/dL
[2021-01-25] MEDS: DOCUSATE SODIUM 100 MG CAPSULE PO (17:29)
[2021-01-25] MEDS: ACETAMINOPHEN 325 MG TABLET 650 MG PO (20:18)
[2021-01-25] MEDS: MELATONIN 5 MG TABLET PO (20:18)
[2021-01-26] VITALS (7 sets, daily range): BP systolic 121–161; BP diastolic 67–70; PULSE 68–87; RESP 14–20; TEMP 36.3–36.8; O2SAT 95–99
[2021-01-26 00:22] LABS: SARS-CoV-2 RNA PCR Negative
[2021-01-26] MEDS: HYDROcodone/acetaminophen (*CRX) 7.5-325 MG TABLET 2 TAB PO (02:24)
[2021-01-26] MEDS: ONDANSETRON INJ 4 MG/2 ML VIAL IV PUSH (05:38)
[2021-01-26] MEDS: MORPHINE SULFATE (*CRX) 2 MG/ML INJ IV PUSH (05:55)
--- NOTE | 2021-01-26 07:29 | PM.PNORT ---
Progress Note: A&P Assessment and Plan (1) Closed fracture of fifth metatarsal bone: Qualifiers: Encounter type: initial encounter Fracture alignment: nondisplaced Laterality: left Qualified Code(s): S92.355A - Nondisplaced fracture of fifth metatarsal bone, left foot, initial encounter for closed fracture Code(s): S92.353A - Displaced fracture of fifth metatarsal bone, unspecified foot, initial encounter for closed fracture Status: Acute (2) Closed fracture of distal end of right radius: Qualifiers: Encounter type: initial encounter Fracture morphology: other intra-articular Qualified Code(s): S52.571A - Other intraarticular fracture of lower end of right radius, initial encounter for closed fracture Code(s): S52.501A - Unspecified fracture of the lower end of right radius, initial encounter for closed fracture Status: Acute Assessment and Plan: 65-year-old female status post ORIF right distal radius fracture yesterday. Work on pain control today. Left foot a non issue. Spoke with therapy about activities. Can be weight-bearing as tolerated left lower extremity using a cane in the left hand. Should wear postop shoe when she is up. No use of the right hand but we will have OT work on edema control. Following. Subjective Subjective Date/Time Seen: 01/26/21 07:29 Post Op day: 1 Principal diagnosis: Status post ORIF right distal radius fracture Interval history: 65-year-old female postop day one right distal radius fracture. Block wore off over night and she is experiencing quite a bit of discomfort in her wrist. She said that she does not tolerate hydrocodone. Exam Const: General: cooperative and no acute distress; No comfortable Nutritional Appearance: well nourished Extrem: Other: Right upper extremity exam reveals well-fitting splint with no drainage. Modest swelling the digits. Sensation is intact to the digits. Forearm compartments supple. Good capillary refill to fingertips. Pretty significant tenderness in the area of the surgical site distally in the forearm. Left foot exam unremarkable this morning. Objective Data Vital Signs Vital Signs: Vital Signs - 24 hr 01/25/21 08:00 01/25/21 10:42 01/25/21 13:30 Temperature 97.1 F L 96.9 F L Pulse Rate 80 76 90 Respiratory Rate 16 Blood Pressure 152/73 H 130/72 Pulse Oximetry 97 99 01/25/21 13:45 01/25/21 14:00 01/25/21 14:15 Temperature Pulse Rate 96 94 88 Respiratory Rate 19 20 16 Blood Pressure 113/54 L 113/71 116/69 Pulse Oximetry 98 96 97 01/25/21 14:30 01/25/21 14:45 01/25/21 15:15 Temperature 96.6 F L 96.6 F L 98.0 F Pulse Rate 80 84 72 Respiratory Rate 16 16 16 Blood Pressure 128/62 118/69 109/57 L Pulse Oximetry 99 98 99 01/25/21 16:00 01/25/21 16:15 01/25/21 20:00 Temperature 96.7 F L 97.7 F Pulse Rate 84 78 95 Respiratory Rate 18 16 Blood Pressure 118/60 123/67 Pulse Oximetry 100 100 01/25/21 23:52 01/26/21 00:00 01/26/21 04:00 Temperature 97.9 F 97.9 F Pulse Rate 74 69 85 Respiratory Rate 16 20 Blood Pressure 111/55 L 161/68 H Pulse Oximetry 97 96 Intake/Output Intake/Output: Intake & Output 01/23/21 01/24/21 01/25/21 01/26/21 23:59 23:59 23:59 23:59 Intake Total 1400 / 1400 850 / 850 1240 / 1240 750 / 750 Output Total 2400 / 2400 1150 / 1150 1300 / 1300 Balance 1400 / 1400 -1550 / -1550 90 / 90 -550 / -550 Meds/Results Medications: Active Medications Generic Name Dose Route Start Last Admin Trade Name Yvette PRN Reason Stop Dose Admin Acetaminophen 650 mg 01/24/21 10:01 01/25/21 20:18 Acetaminophen 325 Mg Tablet PO 650 mg Q4H PRN Administration Headache Hydrocodone Bitart/Acetaminophen 1 tab 01/25/21 14:30 Hydrocodone/Acetaminophen (*Crx) 7.5-325 Mg Tablet PO Q3H PRN Pain Rated 4-6 Hydrocodone Bitart/Acetaminophen 2 tab 01/25/21 14:30 01/26/21 02:24 Hydrocodone/Acetaminophen (*Crx) 7
--- NOTE | 2021-01-26 08:09 | PCPTNOTE ---
Attempted therapy session at 8:00AM, Pt requested therapy to come back a little later this morning due to her pain medication being switched and she has not received the new dose yet. Will attempt again.
[2021-01-26] MEDS: ACETAMINOPHEN 325 MG TABLET 650 MG PO ×3 (08:20→20:45)
[2021-01-26] MEDS: PRIMIDONE 250 MG TABLET PO ×3 (08:20→22:05)
[2021-01-26] MEDS: TAPENTADOL HCL (*CRX) 50 MG TABLET PO ×4 (08:31→22:05)
--- NOTE | 2021-01-26 09:35 | PC.NURSE ---
Pt very anxious and angry this morning due to pain. Pt is refusing labs to be drawn after pain medication has been given. Aaron Dalal notified of refusal. We will try to draw labs at a later time.
[2021-01-26 11:38] LABS: Basophils Percent Auto 0.7 % (0.2-1.2); Eosinophils Percent Auto 0.3 % (0-4.4); Hematocrit 36.2 % (37.0-47.0); Hemoglobin 12.3 g/dL (12.0-15.0); Immature Granulocyte Absolute 0.01 K/mm3 (0.00-0.031); Immature Granulocyte Percent A 0.2 % (0-0.5); Lymphocytes Absolute Auto 1.07 K/mm3 (0.9-3.2); Lymphocytes Percent Auto 18.2 % (18.3-44.2); Mean Corpuscular Hemoglobin 31.9 pg (26-34); Monocytes Absolute Auto 0.7 K/mm3 (0.1-0.6); Monocytes Percent Auto 11.2 % (2.6-8.5); Neutrophils Absolute Auto 4.1 K/mm3 (1.3-6.7); Neutrophils Percent Auto 69.4 % (45.5-73.1); Platelet Count Result 194 k/mm3 (150-375); Red Blood Count 3.85 M/mm3 (4.2-5.4); White Blood Count 5.9 K/mm3 (4.5-10.0)
[2021-01-26 11:47] LABS: Anion Gap 7 mmol/L (8-16); Blood Urea Nitrogen 6 mg/dL (7-17); Calcium 8.9 mg/dL (8.4-10.2); Carbon Dioxide 29 mmol/L (22-30); Chloride 100 mmol/L (98-107); Estimated CRCL calculation 59 ml/min; Estimated Glomerular Filt Rate > 60; Glucose 118 mg/dL (65-105); Magnesium 1.9 mg/dL (1.6-2.3); Potassium 3.2 mmol/L (3.4-5.0); Sodium 136 mmol/L (137-145)
--- NOTE | 2021-01-26 14:05 | PC.NURSE ---
Observed patient care and reviewed charting completed by [facility] student nurse Gallito Arteaga [phone]
--- NOTE | 2021-01-26 14:29 | WPDANESPN ---
Anes - Prog Note Post-Op Date/Time: 01/26/21 14:29 Cardiovascular status: normal Respiratory status: normal Airway patency: baseline Mental status: baseline Post-Op hydration status: normal Vital Signs: Last Vital Signs Temp 36.3 C L 01/26/21 11:33 Pulse 84 01/26/21 12:00 Resp 14 01/26/21 11:33 BP 121/67 01/26/21 11:33 Pulse Ox 95 01/26/21 12:00 Pain Score (VAS): 3 I/O: Intake & Output 01/25/21 01/26/21 01/26/21 23:59 07:59 15:59 Intake Total 490 750 480 Output Total 550 1300 Balance -60 -550 480 Laboratory Tests 01/26/21 11:26 01/26/21 11:26 01/25/21 01/25/21 01/25/21 14:53 14:53 15:19 WBC RBC Hgb Hct MCV MCH MCHC RDW Plt Count MPV Immature Gran % (Auto) Neut % (Auto) Lymph % (Auto) Jefferson % (Auto) Eos % (Auto) Baso % (Auto) Lymph # (Auto) Jefferson # (Auto) Eos # (Auto) Baso # (Auto) Abs Immat Gran (auto) Absolute Neuts (auto) Absolute Nucleated RBC Nucleated RBC % Sodium Potassium Chloride Carbon Dioxide Anion Gap BUN Creatinine Estim Creat Clear Calc Estimated GFR Glucose Calcium Magnesium Cortisol Baseline 3.89 Cortisol Resp 30 Min Cortisol Resp 60 Min ACTH Pending SARS-CoV-2 RNA (RT-PCR) Negative 01/25/21 01/25/21 01/26/21 15:33 16:09 11:26 WBC 5.9 RBC 3.85 L Hgb 12.3 Hct 36.2 L MCV 94.0 MCH 31.9 MCHC 34.0 RDW 12.0 Plt Count 194 MPV 10.0 Immature Gran % (Auto) 0.2 Neut % (Auto) 69.4 Lymph % (Auto) 18.2 L Jefferson % (Auto) 11.2 H Eos % (Auto) 0.3 Baso % (Auto) 0.7 Lymph # (Auto) 1.07 Jefferson # (Auto) 0.7 H Eos # (Auto) 0.0 Baso # (Auto) 0.0 Abs Immat Gran (auto) 0.01 Absolute Neuts (auto) 4.1 Absolute Nucleated RBC 0.0 Nucleated RBC % 0.0 Sodium Potassium Chloride Carbon Dioxide Anion Gap BUN Creatinine Estim Creat Clear Calc Estimated GFR Glucose Calcium Magnesium Cortisol Baseline Cortisol Resp 30 Min 32.40 Cortisol Resp 60 Min 39.50 ACTH SARS-CoV-2 RNA (RT-PCR) 01/26/21 11:26 WBC RBC Hgb Hct MCV MCH MCHC RDW Plt Count MPV Immature Gran % (Auto) Neut % (Auto) Lymph % (Auto) Jefferson % (Auto) Eos % (Auto) Baso % (Auto) Lymph # (Auto) Jefferson # (Auto) Eos # (Auto) Baso # (Auto) Abs Immat Gran (auto) Absolute Neuts (auto) Absolute Nucleated RBC Nucleated RBC % Sodium 136 L Potassium 3.2 L Chloride 100 Carbon Dioxide 29 Anion Gap 7 L BUN 6 L Creatinine 0.70 Estim Creat Clear Calc 59 Estimated GFR > 60 Glucose 118 H Calcium 8.9 Magnesium 1.9 Cortisol Baseline Cortisol Resp 30 Min Cortisol Resp 60 Min ACTH SARS-CoV-2 RNA (RT-PCR) Post-procedural complaints: none Patient Feedback: Patient satisfied with anesthetic care.
--- NOTE | 2021-01-26 15:53 | PM.IMPN ---
Progress Note: A&P Assessment and Plan (1) Orthostatic hypotension: Code(s): I95.1 - Orthostatic hypotension Status: Acute Assessment and Plan: Positive orthostatics during stay. Today, these have improved with diastolic drop upon standing; asymptomatic today. Could be from autonomic dysfunction versus some dehydration versus medication primidone which she is on for central tremor. Cortisol stim tests seems unremarkable as cortisol values >20 mcg/dL post administration of cortrosyn Monitor overnight PT/OT (2) Fall from ground level: Code(s): W18.30XA - Fall on same level, unspecified, initial encounter Status: Acute Assessment and Plan: The patient had sustained 2 falls recently and stated she believe she rolled her ankle on 1 of the occasions and the 2nd occasion she had trouble getting around due to her broken left foot and ended up falling forward and breaking her right wrist. The patient appears well hydrated at this time Will do Sarath hose Plan for d/c home with HH once established by [facility] Monitor overnight (3) Closed fracture of distal end of right radius: Qualifiers: Encounter type: initial encounter Fracture morphology: other intra-articular Qualified Code(s): S52.571A - Other intraarticular fracture of lower end of right radius, initial encounter for closed fracture Code(s): S52.501A - Unspecified fracture of the lower end of right radius, initial encounter for closed fracture Status: Acute Assessment and Plan: S/p fall. POD [address] Mcqueen; appreciate input. Post op care, pain management, PT/OT per Dr. Mcqueen Discussed with Dr. Mcqueen and agree with full dose aspirin for 8 weeks given limited mobility from 5th metatarsal; will add daily PPI for GI protection (4) Closed fracture of fifth metatarsal bone: Qualifiers: Encounter type: initial encounter Fracture alignment: nondisplaced Laterality: left Qualified Code(s): S92.355A - Nondisplaced fracture of fifth metatarsal bone, left foot, initial encounter for closed fracture Code(s): S92.353A - Displaced fracture of fifth metatarsal bone, unspecified foot, initial encounter for closed fracture Status: Acute Assessment and Plan: Ortho will continue monitoring her acute fracture with nonsurgical treatment and to keep her in a postop shoe. Follow-up with ortho as an outpatient Daily aspirin 325 mg x 8 weeks; daily PPI as above (5) Essential tremor: Code(s): G25.0 - Essential tremor Status: Acute Assessment and Plan: She is on primidone for her central tremor, this could cause some orthostatic hypotension. Continue primidone (6) Anxiety: Code(s): F41.9 - Anxiety disorder, unspecified Status: Acute Assessment and Plan: She is not on anything for this. Patient reportedly recently lost her son in October and she is still in the grieving process; she mentioned a son today who recently injured his ankle, however, unclear if this is the same son that Will continue monitoring closely Subjective Date/time seen: 01/26/21 15:53 Interval history: Patient is a 65-year-old female with history of essential tremor and anxiety who is seen in follow up for right wrist fracture s/p mechanical fall POD [address] Mcqueen and for orthostatic hypotension. Patient states she is doing much better this morning then this morning as she was in significant pain once her nerve block wore off. Her pain medication has been adjusted and she is doing much better today with little complaints. She was not symptomatic during her orthostatic blood pressure readings this afternoon.
[2021-01-26] MEDS: ASPIRIN 325 MG ENTERIC TABLET PO (18:00)
[2021-01-26] MEDS: POTASSIUM CHLORIDE 20 MEQ PACKET (FOR LIQUID) 40 MEQ PO (18:01)
--- NOTE | 2021-01-26 18:05 | PC.NURSE ---
Patient extremely agitated, screaming at staff and throwing cane around in air. Patient requesting pain medication and cussing out staff, refusing to sit in chair with chair alarm, unplugging alarm and refusing to listen to any staff education. Patient stating she wants to leave this [facility]. you guys don't know what you're doing. Instructed patient that it is her right to sign out AMA. She then states Give me my prescription and I will. I was able to deescalate patient and she is agreeable to stay at this time. However, she is still refusing a bed or chair alarm and unplugging them.
--- NOTE | 2021-01-26 18:54 | PC.NURSE ---
When checking back in on pt, she is still being aggressive and saying she is going to rip her IV out if we don't take it out. Trying to contact physician.
[2021-01-26] MEDS: MELATONIN 5 MG TABLET PO (20:45)
[2021-01-27] MEDS: ACETAMINOPHEN 325 MG TABLET 650 MG PO ×2 (02:07→08:28)
[2021-01-27] MEDS: TAPENTADOL HCL (*CRX) 50 MG TABLET PO (03:25)
[2021-01-27 04:29] VITALS: BP 124/72; PULSE 73; RESP 17; TEMP 36.1; O2SAT 97
[2021-01-27] MEDS: PRIMIDONE 250 MG TABLET PO (05:19)
[2021-01-27 06:06] LABS: Anion Gap 4 mmol/L (8-16); Blood Urea Nitrogen 8 mg/dL (7-17); Calcium 8.6 mg/dL (8.4-10.2); Carbon Dioxide 27 mmol/L (22-30); Chloride 105 mmol/L (98-107); Estimated CRCL calculation 67 ml/min; Estimated Glomerular Filt Rate > 60; Glucose 96 mg/dL (65-105); Sodium 136 mmol/L (137-145)
[2021-01-27] MEDS: ASPIRIN 325 MG ENTERIC TABLET PO (08:29)
[2021-01-27] MEDS: PANTOPRAZOLE 40 MG TABLET PO (08:29)
[2021-01-27 08:30] VITALS: O2SAT 98
--- NOTE | 2021-01-27 10:31 | PM.DS ---
DS: Admitting Diagnosis Admitting Diagnosis Admitting Diagnosis: right wrist fracture, left 5th metatarsal fracture, s/p fall DS: Discharge Diagnosis Discharge Diagnosis (1) Orthostatic hypotension: Code(s): I95.1 - Orthostatic hypotension Status: Acute Assessment and Plan: Positive orthostatics during stay. She is asymptomatic today. Could be from autonomic dysfunction versus some dehydration versus medication primidone which she is on for central tremor. Cortisol stim tests seems unremarkable as cortisol values >20 mcg/dL post administration of cortrosyn. ACTH <5 although collected outside the reference range times PT/OT Home with HH F/u with PCP (2) Fall from ground level: Code(s): W18.30XA - Fall on same level, unspecified, initial encounter Status: Acute Assessment and Plan: The patient had sustained 2 falls recently and stated she believe she rolled her ankle on 1 of the occasions and the 2nd occasion she had trouble getting around due to her broken left foot and ended up falling forward and breaking her right wrist. The patient appears well hydrated at this time Will do Sarath hose Plan for d/c home with (3) Closed fracture of distal end of right radius: Qualifiers: Encounter type: initial encounter Fracture morphology: other intra-articular Qualified Code(s): S52.571A - Other intraarticular fracture of lower end of right radius, initial encounter for closed fracture Code(s): S52.501A - Unspecified fracture of the lower end of right radius, initial encounter for closed fracture Status: Acute Assessment and Plan: S/p fall. POD [address] Mcqueen; appreciate input. Post op care, pain management, PT/OT per Dr. Mcqueen Discussed with Dr. Mcqueen and agree with full dose aspirin for 8 weeks given limited mobility from 5th metatarsal; will add daily PPI for GI protection (4) Closed fracture of fifth metatarsal bone: Qualifiers: Encounter type: initial encounter Fracture alignment: nondisplaced Laterality: left Qualified Code(s): S92.355A - Nondisplaced fracture of fifth metatarsal bone, left foot, initial encounter for closed fracture Code(s): S92.353A - Displaced fracture of fifth metatarsal bone, unspecified foot, initial encounter for closed fracture Status: Acute Assessment and Plan: Ortho will continue monitoring her acute fracture with nonsurgical treatment and to keep her in a postop shoe. Follow-up with ortho as an outpatient Daily aspirin 325 mg x 8 weeks; daily PPI as above (5) Essential tremor: Code(s): G25.0 - Essential tremor Status: Acute Assessment and Plan: She is on primidone for her central tremor, this could cause some orthostatic hypotension. Continue primidone (6) Anxiety: Code(s): F41.9 - Anxiety disorder, unspecified Status: Acute Assessment and Plan: She is not on anything for this. No acute issues today. Patient reportedly recently lost her son in October and she is still in the grieving process F/u with PCP DS: Summary Hospital Course Reason for hospitalization: s/p fall, right wrist fracture Hospital Course: Date of arrival: 01/23/21 Date of discharge: 01/27/21 Patient is a 65-year-old female with history of essential tremor and anxiety who presented to the emergency department on 01/23 via EMS from home for evaluation of a right wrist injury after a fall. While in the ED, xray left foot revealed nondisplaced fracture of base of left fifth metatarsal. Xray of right rist showed mild dorsal displacement as well as dorsal and radial impaction angulation of a comminuted intra-articular fracture
[2021-01-27 20:58] LABS: Adrenocorticotropic Hormone <5 pg/mL (6-50)
== END 2021-01-27 12:08 | disposition home health service (06) | DRG 315 ==
LOC: ANHED 13:50 → ANH3MED 14:34
PROVIDERS: Emergency Medicine Emergency Medical Services; Orthopaedic Surgery; Physician Assistant; Admitting Provider Internal Medicine; Emergency Provider Emergency Medicine; PCP Family Medicine; Visit Provider Physician Assistant
PROC: 0PSH04Z Reposition Right Radius with Internal Fixation Device, Open Approach (ICD-10-PCS; CPT 25575; principal; 2021-01-25 11:30)
DX: S52.571A Other intraarticular fracture of lower end of right radius, initial encounter for closed fracture (principal); S92.355A Nondisplaced fracture of fifth metatarsal bone, left foot, initial encounter for closed fracture; W18.30XA Fall on same level, unspecified, initial encounter; F41.9 Anxiety disorder, unspecified; I95.1 Orthostatic hypotension; G25.0 Essential tremor; E86.0 Dehydration; Z87.891 Personal history of nicotine dependence
CPT/HCPCS: 25605; 36415; 71045; 73100; 73110; 73610; 80048; 80053; 81003; 82024; 82533; 83735; 84443; 85025; 85027; 85610; 85730; 93005; 96361; 96374; 96375; 96376; 97110; 97116; 97161; 97165; 97530; 97535; 99285; A4565; A9270; C1713; C9803; G0378; G0379; J0131; J0690; J0834; J1100; J1170; J2250; J2270; J2370; J2405; J2704; J7030; J7040; J7120; U0003; U0005